=== PATIENT | female | born 1950 | race Caucasian/White ===

== ENCOUNTER → 2021-01-08 | Outpatient (CLI) | payer OTHER, BC ==
[~2021-01-08] VITALS: Ht 160 cm; Wt 63.5 kg
[~2021-01-08] MED LIST: B-12 COMPL1000 MCG/1 INJECTION; BENICAR40 MG PO; BUMETANIDE 1 MG1 M1 PO; BYSTOLIC2.5 MG PO; CHILDREN'S ASPI81 M1 PO; IRON 100 PLUS1 EACH PO; NEXIUM40 M2 PO; PRALUENT P75 MG/1 ML SUBQ; RIZATRIPTAN10 M1 PO; SYNTHROID137 MC1 PO; TROKENDI XR100 MG PO; VASCEPA1 GM PO; VITAMIN D21250 MCG PO; VYTORIN 10-401 EACH PO; ZINC50 M3 PO; ZOLOFT100 MG PO
[2021-01-08 09:25] VITALS: BP 109/63
--- NOTE | 2021-01-08 09:37 | NUR ---
Pain Clinic Assessment: 1. History of Osteoarthritis: BACK/NECK KNEES History of Rheumatoid Arthritis: Not Applicable 2. Height: 5 ft. 3 in. 160.0 cm. Weight: 140.0 lb. oz. 63.504 kg. Patient's BMI: 24.8 3. Vital Signs: BP: 109/63 Pulse: 67 Resp: 16 Temp: 02 Sat: 99 ECG Mon: 4. Pain Intensity: 5 5. Fall Risk: Dizziness: N Needs help standing or walking: N Fallen in the last 3 months: N Fall risk comments: 6. Patient on Blood Thinner: None 7. History of Hypertension: Y 8. Opioid Therapy greater than 6 weeks: N Opiate Contract Signed: 9. Risk Assessment Tool Provided: 1-LOW RISK 10. Functional Assessment Tool: 11. Recreational Drug Use: Never Drug Type: Tobacco Use: Never Smoker Tobacco Type: Amount or Packs/day: How Many Years: Alcohol Use: Yes Frequency: Weekly Quant: 1-2 DRINNKS
--- NOTE | 2021-01-10 14:52 | HPC ---
[facility] [place] [address] PAIN MANAGEMENT CONSULTATION Name: MAKENZIE ARIAS Room #: REG [facility]..#: [id number] Admission: 01/08/21 Attend Phys: Álvaro Modi DO Discharge: Date of : 46 Report #: [id number] THIS REPORT FOR: cc: Tova Frey MD, Liliana E. MD Johnson, James E. DO ~ DATE OF SERVICE: 01/08/2021 REFERRING PHYSICIAN: Jorje Byers MD CHIEF COMPLAINT: Neck pain and bilateral head pain. HISTORY OF PRESENT ILLNESS: As you know, the patient is a 70-year-old female with longstanding history of neck pain and bilateral head pain. She states pain has been present since 04/25/2018. She denies any specific injury or trauma that may have led to symptom development. The patient had trialled [id number] medications without benefit. She continued to experience symptoms of cervicalgia and headache. She has not sought evaluation through Neurology. She discussed her case further with her physician who referred the patient on to discuss surgical options with Dr. Jorje Byers. The patient was seen by Dr. Byers and advised that surgical options at this point would not be recommended that conservative treatment should be addressed initially. She was diagnosed with cervical spondylosis and cervicogenic headache and referred to our clinic to discuss interventional treatment options. The patient indicates her pain is continuous and periodic. She describes the pain as aching, throbbing and crushing as well as pressure like. She places current pain score at 5/10, daily average at 5/10, the worst pain has been is 10/10. The patient has been referred to our service to discuss treatment options for cervical facet arthropathy and suspected cervicogenic headache. PAST MEDICAL HISTORY: 1. Hypertension. 2. Degenerative joint disease. 3. Osteoarthritis. 4. Hypothyroidism. 5. Chronic kidney disease. 6. Dyslipidemia. 7. Depression. 8. GERD. PAST SURGICAL HISTORY: 1. Tonsillectomy. 2. Sinus surgery x 3. 3. Right shoulder rotator cuff repair. 4. D and C. [facility] [address] [place] [address] PAIN MANAGEMENT CONSULTATION Name: MAKENZIE ARIAS Room #: REG [facility]..#: [id number] Admission: 01/08/21 Attend Phys: Álvaro Modi DO Discharge: Date of : 46 Report #: [id number] 5. Back fusion. SOCIAL HISTORY: The patient denies tobacco use. Denies IV or illicit drug use. Admits to 1-2 alcohol beverages per day. She is retired, retired years ago. She is not receiving workmen's compensation nor is she trying to obtain disability benefits. She is not in litigation in regards to pain. She is accompanied by her present in room today. REVIEW OF SYSTEMS: Positive for fatigue and weakness, frequent and recurrent headaches, chronic sinus problems with rhinitis, shortness of breath with walking or lying flat, nocturia, lightheadedness and dizziness, thyroid disease, neck pain, bilateral head pain and upper thoracic pain. All other review of systems negative per 12-point review of systems other than those listed in history of present illness. Pain impact score 35/70 equaling moderate interference of daily activities secondary to pain. ALLERGIES: IODINE, ATORVASTATIN, LOVASTATIN, PITAVASTATIN AND REPATHA. CURRENT MEDICATIONS: Praluent Pen subcutaneous monthly, omeprazole 40 mg per day, vitamin D2 1250 mcg 2 tabs per day, iron supplement 1 tab per day, cyanocobalamin 1000 mcg injected monthly, zinc 50 mg once a day, aspirin 81 mg per day, rizatriptan 10 mg p.r.n., Trokendi 100 mg once a day, Vytorin 10/40 once a day, Bystolic 2.5 mg once a day, sertraline 100 mg once a day, bumetanide 1 mg once a day, Benicar 40 mg per day, levothyroxine 137 mcg per day, ____ 1 gram orally twice a day. IMAGING: No imaging available. PHYSICAL EXAMINATION: VITAL SIGNS: Blood pressure 109/63, pulse 67, respiratory rate 16 and unlabored. The patient is 99% on room air. Height 5 feet 3 inches tall, weight 140 pounds, BMI calculated 24.8. GENERAL: Well-developed, well-nourished, well-hydrated 70-year-old female, appears her stated age. She is placing current pain score 5/10. HEENT: Normocephalic, atraumatic. Pupils are round and responsive. The patient is deemed a good historian. She is wearing a mask in compliance with COVID-19 regulations. LUNGS: Appear clear. No wheeze, rhonchi, no rales. CARDIOVASCULAR: Regular. No appreciable gallop, no rub. ABDOMEN: Soft, nontender, nondistended. EXTREMITIES: Show no clubbing, no cyanosis, and no edema. MUSCULOSKELETAL: The patient has palpatory tenderness over the paraspinal musculature of cervical spine. No spinous process tenderness. Cervical provocation testing is met with increasing axial neck pain, no radiation of symptoms. Spurling test negative. Deep palpation of the upper portion of the cervical spine causes radiation of symptoms in a classic tension-like headache [address] [address] PAIN MANAGEMENT CONSULTATION Name: MAKENZIE ARIAS Room #: [facility]#: [id number] Admission: 01/08/21 Attend Phys: Álvaro Modi DO Discharge: Date of : 46 Report #: [id number] distribution. Muscle bulk and tone is equal and symmetrical in upper extremities. Intact to light touch from C5 through T1 dermatomes. ASSESSMENT: 1. Cervical spondylosis without myelopathy. 2. Cervicogenic headache. 3. Chronic carpal tunnel syndrome. PLAN: 1. Based on today's physical exam and history the patient has provided, the description the patient uses in regards to pain as well as location of symptoms and provocating factors that exacerbate pain, it would appear the patient is suffering from fairly severe facet arthropathy of cervical spine. This does correlate with the reports from Dr. Byers in regards to his physical exam findings consistent with facet arthropathy as well. I believe the patient's headache that she is experiencing on a daily basis is more cervicogenic in nature. It is noted she is taking medications for migraines, but also reports that she minimally gets benefit with the use of the medications. We discussed with the patient the findings of the physical exam today. Unfortunately, we could not correlate her symptoms to any imaging as we do not have any available. She will be obtaining those imaging studies and bringing those to us at our next visit. After a long discussion about the pathogenesis of the patient's symptoms, we discussed the treatment options we have available. Following was discussed with the patient today. We discussed physical therapy, stretching exercises and traction techniques as the treatment option of choice. We discussed suggestions in medication management utilizing a consistent nonsteroidal anti-inflammatory along with possible oral opioid medication for baseline pain control. We discussed intra-articular facet injections, which will provide improvement in symptoms. We also discussed radiofrequency lesioning of medial branch nerves of the cervical spine as a treatment option. We finally then discussed surgical options with the patient, which could include a peripheral nerve stimulator to address cervicogenic headache. Also, a cervical fusion to control the facet arthropathy symptoms the patient is experiencing. After reviewing risks and benefits of all proposed treatment options, the patient chose to move forward with intraarticular facet injections. 2. We have made the patient a followup appointment with us to undergo bilateral intraarticular facet injections. We will review the patient's imaging once it is available and then determine the levels of the injections that will be necessary. Based on the current examination, it would appear that her cervical spine is arthritic from C2-C3 all the way through C6-C7. We would have to address either the upper or lower cervical area, but cannot address all at the same time. We will discuss this at a followup visit and determine at what levels will be addressing. [address] [address] PAIN MANAGEMENT CONSULTATION Name: MAKENZIE ARIAS Room #: REG [facility]#: [id number] Admission: 01/08/21 Attend Phys: Álvaro Modi DO Discharge: Date of : 46 Report #: [id number] 3. No medication changes made at today's visit. The patient will continue current medical therapy as prior prescribed. 4. We plan to see the patient back in followup visit at our agreed upon date to undergo intraarticular facet injections of the cervical spine done bilaterally. 5. We wish to thank Dr. Jorje Byers for the referral of this patient to our clinic. We will keep you apprised of response to treatment as we address cervicogenic headache and cervical spondylosis. Again, we wish to thank you for the opportunity to see the patient in consultation. <ELECTRONICALLY SIGNED> By: Álvaro Modi DO 01/10/21 1452 1653 19 Álvaro Modi DO /nt
== END ==
LOC: PAIN 06:48
PROVIDERS: ATTEND Anesthesiology Pain Medicine
DX: M47.812 Spondylosis without myelopathy or radiculopathy, cervical region (principal); R51.9 Headache, unspecified; G56.00 Carpal tunnel syndrome, unspecified upper limb; Z79.891 Long term (current) use of opiate analgesic; Z79.899 Other long term (current) drug therapy

== ENCOUNTER → 2021-01-14 | Outpatient (CLI) | payer OTHER, BC ==
[~2021-01-14] VITALS: Ht 160 cm; Wt 70.1 kg
[2021-01-14 10:50] VITALS: BP 108/54
--- NOTE | 2021-01-14 10:58 | NUR ---
Pain Clinic Assessment: 1. History of Osteoarthritis: BACK/NECK KNEES History of Rheumatoid Arthritis: Not Applicable 2. Height: 5 ft. 3 in. 160.0 cm. Weight: 154.6 lb. oz. 70.126 kg. Patient's BMI: 27.4 3. Vital Signs: BP: 108/54 Pulse: 66 Resp: 16 Temp: 02 Sat: 100 ECG Mon: 4. Pain Intensity: 5 5. Fall Risk: Dizziness: N Needs help standing or walking: N Fallen in the last 3 months: N Fall risk comments: 6. Patient on Blood Thinner: None 7. History of Hypertension: Y 8. Opioid Therapy greater than 6 weeks: N Opiate Contract Signed: 9. Risk Assessment Tool Provided: 1-LOW RISK 10. Functional Assessment Tool: 11. Recreational Drug Use: Never Drug Type: Tobacco Use: Never Smoker Tobacco Type: Amount or Packs/day: How Many Years: Alcohol Use: Yes Frequency: Quant:
--- NOTE | 2021-01-21 08:06 | HPC ---
[address] [address] PAIN MANAGEMENT CONSULTATION Name: MAKENZIE ARIAS Room #: REG [facility]..#: [id number] Admission: 01/14/21 Attend Phys: Álvaro Modi DO Discharge: Date of : 46 Report #: [id number] THIS REPORT FOR: cc: Tova Frey MD, Liliana E. MD Johnson, James E. DO ~ DATE OF SERVICE: 01/14/2021 CHIEF COMPLAINT: Neck pain, bilateral head pain. HISTORY OF PRESENT ILLNESS: As you know, the patient is a pleasant 70-year-old female with longstanding history of low back pain and bilateral head pain. She states pain began 04/25/2018. No specific injury or trauma. We saw the patient in consultation after failing conservative treatment per the request of Dr. Byers to discuss intraarticular cervical facet injections. At the visit of 01/08/2021, we discussed all the treatment options we had available for cervical facet arthropathy and cervicogenic headache. She chose to undergo intra-articular facet injections at today's visit. We established, the patient's appointment to undergo C2-C3, C3-C4, C4-C5, C5-C6 cervical facet injections bilaterally. She returns today to undergo that procedure. She is now placing pain score at 5/10. She has had no changes in medical history since our last visit. She is prepared to undergo bilateral C2-C3, C3-C4, C4-C5 and C5-C6 intra-articular facet injections. ALLERGIES: IODINE, ATORVASTATIN, LOVASTATIN, PRAVASTATIN, REPATHA. CURRENT MEDICATIONS: See chart. SOCIAL HISTORY: The patient denies tobacco use. Denies IV or illicit drug use. Admits to 1-2 alcohol beverages per day. She is retired, retired years ago, accompanied by her present in room today. IMAGING: No new imaging available. PQRS: The patient has known arthritic changes of the cervical spine, bilateral hips and knees. No rheumatoid arthritis. She is placing pain at 5/10. She is not a fall risk, has not had a fall in last 3 months. She is not on blood thinners, but is treated for hypertension. She is not on chronic opioid. She has a low opioid addiction potential. Pain impact is 35/70, moderate interference of daily activities secondary to pain. PHYSICAL EXAMINATION: VITAL SIGNS: Blood pressure 108/54, pulse 66, respiratory rate 16 and unlabored. The patient is 100% on room air. Height 5 feet 3 inches tall, weight 154.6 pounds, BMI calculated 27.4. GENERAL: Well-developed, well-nourished, well-hydrated 70-year-old female, [place] [address] PAIN MANAGEMENT CONSULTATION Name: MAKENZIE ARIAS Room #: [facility]#: [id number] Admission: 01/14/21 Attend Phys: Álvaro Modi DO Discharge: Date of : 46 Report #: [id number] appearing stated age. She is in no acute distress. Awake, alert and oriented x 3. Current pain score rated at 5/10. HEENT: Normocephalic, atraumatic. Pupils are round and responsive. The patient is wearing a mask in compliance with COVID-19 regulations. EXTREMITIES: Show no clubbing, no cyanosis, no edema. MUSCULOSKELETAL: The patient remains tender to palpation over the paraspinal musculature of cervical spine. Spinous process tenderness is negative. Spurling's test remains negative. There is crepitus noted with cervical rotation and lateral flexion. Pain is elicited with extension, but is slightly improved with flexion. ASSESSMENT: 1. Cervical spondylosis without myelopathy. 2. Cervical facet arthropathy. 3. Cervicogenic headache. PLAN: 1. The patient returns today in followup visit to undergo bilateral C2-C3, C3-C4, C4-C5 and C5-C6 intra-articular facet injections to address cervical facet arthropathy. The patient has been advised of the risks and the benefits of this procedure. These risks include but are not necessarily limited to bleeding, bruising, infection, worsening pain, no relief of pain, also risk of temporary or permanent muscle weakness, temporary or permanent nerve damage, possible paralysis, post-dural puncture headache and . The patient states understood and wished to proceed. 2. No medication changes made at today's visit. The patient will continue current medical therapy as prior prescribed. 3. We plan to see the patient back in followup visit in about 30 days. At that time, review the efficacy of today's intra-articular facet injections to determine if next in the series of injections would be recommended. PROCEDURE NOTE DESCRIPTION OF PROCEDURE: Bilateral C2-C3, C3-C4, C4-C5 and C5-C6 intraarticular facet injections under fluoroscopic guidance. After obtaining written consent, the patient was taken back to fluoroscopy suite, placed in prone position with separate pillows under chest and forehead to decrease cervical lordosis. Skin overlying cervical area was then prepped and draped in aseptic fashion. AP imaging of the cervical spine was obtained and the areas overlying the C2-C3, C3-C4, C4-C5 and C5-C6 facets bilaterally were marked with sterile marker. Next, a 27-gauge 1-1/4 inch needle was then used to anesthetize the skin and subcutaneous tissue with 1 mL of 1% lidocaine overlying each of the sites. The target locations bilaterally overlying the C2-C3, C3-C4, C4-C5 and C5-C6 [facility] [address] [place] [address] PAIN MANAGEMENT CONSULTATION Name: MAKENZIE ARIAS Room #: REG [facility].#: [id number] Admission: 01/14/21 Attend Phys: Álvaro Modi DO Discharge: Date of : 46 Report #: [id number] joint spaces were established. A 22-gauge 3-1/2 inch spinal needle was advanced towards each of the target to the facet joints ventrally until bone was contacted on the posterior aspect of the articular pillar, just medial to the lateral border and just inferior to the joint line at all location sites. Touching bone initially assured the needles were not placed too deeply. Each needle was then advanced superiorly, slipping into the facet joint at all locations. An off lateral fluoroscopic imaging was obtained to confirm final positioning of the needle within the joint itself. After entering the joint space and aspiration noted to be negative for heme or cerebrospinal fluid, 0.25 mL of Omnipaque injected demonstrating characteristic facet arthrograms at each of the 8 sites. After negative aspiration for heme or cerebrospinal fluid, 1 mL of a solution containing 2 mL 40 mg per mL, 80 mg total triamcinolone and 6 mL of bupivacaine 0.5% injected slow. [place] were then retracted to chcf, flushed with 1 mL of 1% lidocaine at each site and sequentially removed. Sterile bandages placed over each of the injection site. There were no new motor deficits present in the upper extremity following procedure. The patient tolerated procedure well, carefully escorted to recovery room in stable condition. No apparent complications. After meeting discharge criteria, the patient discharged home. <ELECTRONICALLY SIGNED> By: Álvaro Modi DO 01/21/21805 0919 22 Álvaro Modi DO /nt
== END | disposition home or self-care (01) ==
LOC: PAIN 06:54
PROVIDERS: ATTEND Anesthesiology Pain Medicine
DX: M47.812 Spondylosis without myelopathy or radiculopathy, cervical region (principal); G89.29 Other chronic pain; R51.9 Headache, unspecified; I10 Essential (primary) hypertension; M19.90 Unspecified osteoarthritis, unspecified site; Z98.890 Other specified postprocedural states; Z79.899 Other long term (current) drug therapy; Z88.8 Allergy status to other drugs, medicaments and biological substances; Z91.041 Radiographic dye allergy status